=== PATIENT | female | born 1935 | race Caucasian/White ===

== ENCOUNTER 2017-03-15 10:51 | Emergency (ER) | payer OTHER ==
[2017-03-15 11:24] VITALS: BP 146/63; PULSE 64; TEMP 98.1; BMI 24.0
--- NOTE | 2017-03-15 11:43 | PDOC ---
History of Present Illness - General Chief Complaint: Respiratory Stated Complaint: COUGHING Time Seen by Provider: 03/15/17 11:42 History Source: Patient - History of Present Illness Initial Comments: CHIEF COMPLAINT: 82 y/o afebrile female with PMH HTN, HLD, osteoporosis c/o cough and body aches x 1 week. HISTORY OF PRESENT ILLNESS: The patient states she has a little green phlegm with her cough but it is mostly dry. She cannot sleep because of the cough. She states her whole body hurts and has a runny nose. She denies fever, chills , [place], earache, sore throat, n/v/d, SOB, abd pain, back pain, hematuria, dysuria. Her doctor prescribed her a ventolin inhaler which she started yesterday but states it hasn't helped yet. PCP is Dr. Weinstein Vital signs on arrival are within normal limits. REVIEW OF SYSTEMS: GENERAL/CONSTITUTIONAL: No fever/chills. No weakness. No weight change. +body aches. HEAD, EYES, EARS, NOSE AND THROAT: No change in vision. No ear pain or discharge. No sore throat. CARDIOVASCULAR: +chest pain with cough. No shortness of breath. RESPIRATORY: +mostly dry cough; sometimes with green phlegm. No wheezing or hemoptysis. GASTROINTESTINAL: No abd pain, nausea, vomiting, diarrhea. GENITOURINARY: No dysuria, frequency, or change in urination. MUSCULOSKELETAL: No joint or muscle swelling or pain. No neck or back pain. SKIN: No rash or easy bruising. NEUROLOGIC: No headache, vertigo, loss of consciousness, or loss of sensation. PHYSICAL EXAM: GENERAL: The patient is awake, alert, and fully oriented, in no acute distress. She has a very intermittent dry cough. Non toxic appearing. HEAD: Normal with no signs of trauma. No pain reproduced with palpation of frontal or maxillary sinuses. ENT: Pupils equal, round and reactive to light, extraocular movements intact, sclera anicteric, conjunctiva clear. No tonsilar erythema, edema or exudate. LUNGS: Clear to auscultation bilaterally. Normal excursion. No respiratory distress or use of accessory muscles. CV: RRR, S1/S2, no MRG. Cap refill < 2 sec. CHEST WALL: Reproducible pain with palpatio of anterior chest along sternum as well as along b/l lower ribs at mid axillary lines. ABDOMEN: Soft, non-distended, non-tender even to deep palpation, no hepatomegaly or splenomegaly, no masses. EXTREMITIES: Normal range of motion, no edema. NEUROLOGICAL: Normal speech, normal gait. CN II-XII grossly intact. PSYCH: Normal mood, normal affect. SKIN: Warm, dry, normal turgor, no rashes or lesions noted. Past History - Past Medical History Allergies/Adverse Reactions: Allergies Allergy/AdvReac Type Severity Reaction Status Date / Time No Known Allergies Allergy Verified 03/15/17 11:19 Home Medications: Ambulatory Orders Albuterol Sulfate Inhaler - [Ventolin HFA Inhaler -] 1 - 2 inh IH QID #1 inhaler 05/13/14 Albuterol 0.083% Nebulizer Rosalinda [Ventolin 0.083% Nebulizer Soln -] 1 neb NEB Q6H #20 vial 03/15/17 Amlodipine Besylate 5 mg PO DAILY 03/15/17 Azithromycin [Zithromax -] 250 mg PO UTDICT #6 tab 03/15/17 Guaifenesin AC [Robitussin AC -] 5 ml PO TID #50 liquid MDD 15mL 03/15/17 Nebulizer [Aeroeclipse II] 1 each MC PRN #1 each 03/15/17 Valsartan 160 mg PO DAILY 03/15/17 Anemia: No Asthma: No Cancer: No Cardiac Disorders: No CVA: No COPD: No CHF: No Dementia: No Diabetes: No GI Disorders: No Disorders: No HTN: Yes Hypercholesterolemia: No Liver Disease: No Seizures: No Thyroid Disease: No - Surgical History Abdominal Surgery: No Appendectomy: Yes Cardiac Surgery: No Cholecystectomy: No Neurologic Surgery: No Orthopedic Surgery: No - Suicide/Smoking/Psychosocial Hx Smoking Status: No Smoking History: Never smoked Have you smoked in the past 12 months: No Number of Cigarettes Smoked Daily: 0 Hx Alcohol Use: No Drug/Substance Use Hx: No Substance Use Type: None Hx Substance Use Treatment: No *Physical Exam - Vital Signs Last Vital Signs Temp Pulse Resp BP Pulse Ox 98.1 F 64 19 146/63 98 03/15/17 11:19 03/15/17 11:19 03/15/17 11:19 03/15/17 11:19 03/15/17 11:19 ED Treatment Course - LABORATORY CBC & Chemistry Diagram: 03/15/17 12:47 03/15/17 12:47 Medical Decision Making - Medical Decision Making A/P: 82 y/o afebrile female with symptoms of flu vs pneumonia. Plan is as follows: 1. Labs 2. CXR 3. Duoneb 4. Influenza swab Influenza A&B - negative CXR IMPRESSION: No acute pathology After 2 neb treatments and Robitussin with codeine she states she feels better and her cough has lessened. She is asking for both the nebulizer and the cough medicine for home. Will discharge with dx of bronchitis with and rx for z-pack, nebulizer, cough medicine and albuterol for home. Informed her that cough medicine may make her drowsy. Her adult daughter is at bedside and is aware of the potential side effect. Suggested she f/u with her doctor next week and return to the ER with any worsening or concerning symptoms. The patient verbalizes understanding of all instructions, has no further questions and is awaiting discharge. *DC/Admit/Observation/Transfer Diagnosis at time of Disposition: Bronchitis - Discharge Dispostion Disposition: HOME Condition at time of disposition: Improved - Referrals - Patient Instructions Printed Discharge Instructions: DI for Acute Bronchitis Additional Instructions: Discharge instructions: -You have bronchitis -Take medications as prescribed -Gargle with warm salt water to help with throat soreness -The cough medicine may make you feel drowsy. -Follow up with your doctor within 1 week -Return to the ER with any worsening or concerning symptoms Instrucciones de descarga: -Tienes bronquitis -[place] los medicamentos segn lo prescrito -Gargar con agua salada tibia para ayudar con el dolor de garganta -La medicina para la tos puede hacerlo sentir somnoliento. -Siga con [facility] doctor dentro de 1 semana -Volver a la debby de urgencias con cualquier empeoramiento o sntomas Print Language: WOLOF - Post Discharge Activity
[2017-03-15] MEDS: ALBUTEROL SO4 2.5/IPRATROPIUM 0.5 INH SOL 3 ML VIAL.NEB. NEB SCH ×2 (12:45→13:02)
[2017-03-15] MEDS ORDERED: ALBUTEROL SO4 2.5/IPRATROPIUM 0.5 INH SOL 3 ML VIAL.NEB. NEB ONE (12:57)
[2017-03-15] MEDS ORDERED: guaiFENesin/CODEINE 10 ML UNIT-DOSE CUPS PO ONE (12:58)
[2017-03-15 13:04] LABS: BASO % 0.6 % (0-2.0); EOS % 1.5 % (0-4.5); HEMATOCRIT 35.2 % (32.4-45.2); HEMOGLOBIN 11.5 GM/dL (10.7-15.3); MCH 30.3 pg (25.7-33.7); MCHC 32.5 g/dl (32.0-36.0); MEAN CELL VOLUME 93.1 fl (80-96); MEAN PLT VOLUME 9.4 fl (7.5-11.1); MONO % 17.5 % (3.8-10.2); NEUT % 48.4 % (42.8-82.8); PLATELET COUNT 200 K/MM3 (134-434); RBC 3.79 M/mm3 (3.60-5.2); RDW 13.5 % (11.6-15.6); WHITE BLOOD COUNT 5.1 K/mm3 (4.0-10.0)
[2017-03-15] MEDS ORDERED: guaiFENesin/CODEINE 5 ML UNIT-DOSE CUPS PO ONE (13:04)
[2017-03-15 13:41] LABS: ALBUMIN 3.4 g/dl (3.4-5.0); ANION GAP 6 (8-16); BILIRUBIN,TOTAL 0.3 mg/dL (0.2-1.0); BLOOD UREA NITROGEN 11 mg/dL (7-18); CALCIUM 8.4 mg/dL (8.5-10.1); CHLORIDE 101 mmol/L (98-107); CO2 28 mmol/L (21-32); CREATININE 0.7 mg/dL (0.55-1.02); GLUCOSE,RANDOM 82 mg/dL (74-106); POTASSIUM 4.4 mmol/L (3.5-5.1); SGOT/AST 17 U/L (15-37); SGPT/ALT 19 U/L (12-78); SODIUM 135 mmol/L (136-145)
[2017-03-15 13:44] LABS: ALK PHOS 61 U/L (45-117)
== END 2017-03-15 14:27 | disposition home or self-care (01) ==
LOC: JER 10:51
DX: J40 Bronchitis, not specified as acute or chronic (principal); I10 Essential (primary) hypertension; E78.00 Pure hypercholesterolemia, unspecified; M81.0 Age-related osteoporosis without current pathological fracture
CPT/HCPCS: 36415; 71046-TC; 80053; 82550; 84484; 85025; 87804; 99284-25

== ENCOUNTER 2018-09-04 09:07 | Emergency (ER) | payer OTHER ==
[2018-09-04 09:16] VITALS: TEMP 97.9; BMI 24.3
[2018-09-04] MEDS ORDERED: ACETAMINOPHEN 1000 MG/100 ML VIAL (NON FORMULARY) IVPB ONE (09:42)
[2018-09-04] MEDS ORDERED: SODIUM CHLORIDE FOR INHALATION 3 ML VIAL.NEB IH ONE (09:58)
--- NOTE | 2018-09-04 09:59 | PDOC ---
Documentation entered by Jhoan Hoffman SCRIBE, acting as scribe for Alejandro Apple MD. Alejandro Apple MD: This documentation has been prepared by the Dalton choe Elijah, SCRIBE, under my direction and personally reviewed by me in its entirety. I confirm that the documentation accurately reflects all work, treatment, procedures, and medical decision making performed by me. History of Present Illness - General Chief Complaint: Respiratory Stated Complaint: PRODUCTIVE COUGH / LWR BACK PAIN Time Seen by Provider: 09/04/18 09:27 History Source: Patient Exam Limitations: No Limitations - History of Present Illness Initial Comments: 09/04/18 09:45 Patient is an 83 year old female with a significant past medical history of HTN , HLD, and osteoporosis who presents to the ED with a month of productive cough and lower back pain for x3 days. As per patients family member at bedside, the patient has had a productive cough productive of white sputum for over a month. The patient saw her PCP, was given antibiotics (pt cannot recall which one), but has had persistent symptoms despite finishing the course. The patient also reports three days of back pain that is made worse with the cough, deep breaths and has made it difficult to move. Denies any weakness/numbness in her legs. No incontinence or saddle anesthesia. No new leg swelling. Denies fevers, chills, chest pain, SOB, nausea, or vomiting. Allergies: NKA PCP: Dr. Weinstein Past History - Past Medical History Allergies/Adverse Reactions: Allergies Allergy/AdvReac Type Severity Reaction Status Date / Time No Known Allergies Allergy Verified 09/04/18 09:14 Home Medications: Ambulatory Orders Albuterol Sulfate Inhaler - [Ventolin HFA Inhaler -] 1 - 2 inh IH QID #1 inhaler 05/13/14 Albuterol 0.083% Nebulizer Rosalinda [Ventolin 0.083% Nebulizer Soln -] 1 neb NEB Q6H #20 vial 03/15/17 Amlodipine Besylate 5 mg PO DAILY 03/15/17 Nebulizer [Aeroeclipse II] 1 each PRN #1 each 03/15/17 Valsartan 160 mg PO DAILY 03/15/17 Lidocaine 5% Patch [Lidoderm Patch -] 1 patch TP DAILY #7 patch 09/04/18 Naproxen 500 mg PO DAILY PRN #14 tablet 09/04/18 Anemia: No Asthma: No Cancer: No Cardiac Disorders: No CVA: No COPD: No CHF: No Dementia: No Diabetes: No GI Disorders: No Disorders: No HTN: Yes Hypercholesterolemia: No Liver Disease: No Seizures: No Thyroid Disease: No - Surgical History Abdominal Surgery: No Appendectomy: Yes Cardiac Surgery: No Cholecystectomy: No Neurologic Surgery: No Orthopedic Surgery: No - Suicide/Smoking/Psychosocial Hx Smoking Status: No Smoking History: Unknown if ever smoked Have you smoked in the past 12 months: No Number of Cigarettes Smoked Daily: 0 Hx Alcohol Use: No Drug/Substance Use Hx: No Substance Use Type: None Hx Substance Use Treatment: No Review of Systems - Review of Systems Comments:: 09/04/18 09:46 GENERAL/CONSTITUTIONAL: No fever or chills. No weakness. HEAD, EYES, EARS, NOSE AND THROAT: No change in vision. No ear pain or discharge. CARDIOVASCULAR: No chest pain, no loss of consciousness RESPIRATORY: + Productive cough. No wheezing, or hemoptysis. GASTROINTESTINAL: No nausea, vomiting, diarrhea or constipation. GENITOURINARY: No dysuria, frequency, or change in urination. MUSCULOSKELETAL:+Lower Back Pain. No neck pain. SKIN: No rash NEUROLOGIC: No vertigo, no change in strength/sensation. ENDOCRINE: No increased thirst. No abnormal weight change. HEMATOLOGIC/LYMPHATIC: No anemia, easy bleeding, or history of blood clots. ALLERGIC/IMMUNOLOGIC: No hives or skin allergy. *Physical Exam - Vital Signs Last Vital Signs Temp Pulse Resp BP Pulse Ox 97.9 F 66 22 H 149/60 99 09/04/18 09:14 09/04/18 09:14 09/04/18 09:14 09/04/18 09:14 09/04/18 09:14 - Physical Exam Comments: 09/04/18 09:47 GENERAL: Awake, alert, and fully oriented, in no acute distress. HEAD: No signs of trauma EYES: PERRLA, EOMI, sclera anicteric, conjunctiva clear ENT: Auricles normal inspection, hearing grossly normal, nares patent, oropharynx clear without exudates. Moist mucosa NECK: Nontender, no stepoffs, Normal ROM, supple, no lymphadenopathy, JVD, or masses LUNGS: Breath sounds equal, clear to auscultation bilaterally. No wheezes, and no crackles HEART: Regular rate and rhythm, normal S1 and S2, no murmurs, rubs or gallops ABDOMEN: Soft, nontender, normoactive bowel sounds. No guarding, no rebound. No masses EXTREMITIES: Normal range of motion, no edema. No clubbing or cyanosis. No cords, erythema, or tenderness NEUROLOGICAL: Cranial nerves II through XII intact. 5/5 strength and sensation in all extremities, Normal speech, normal gait, normal cerebellar function SKIN: Warm, Dry, normal turgor, no rashes or lesions noted. BACK: + lumbar TTP ED Treatment Course - LABORATORY CBC & Chemistry Diagram: 09/04/18 09:44 09/04/18 09:44 - RADIOLOGY Radiology Studies Ordered: Category Date Time Status CHEST X-RAY PORTABLE* [RAD] Stat Radiology 09/04/18 09:47 Ordered Medical Decision Making - Medical Decision Making 09/04/18 09:55 83 F with cough x 1 month and lower back pain x 3 days. Pt with clear lungs but will r/o PNA. Suspect post-viral bronchitis. Pt's lower back pain is concerning for possible compression fx due to cough. However, given pleuritic nature, will r/o PE with d-dimer. No neuro deficits to suggest cord compression/cauda equina. No abdominal pain, pulsatile masses, or unequal pulses to suggest AAA/ aortic dissection. - Labs, d-dimer - CXR - Saline neb - Tylenol 09/04/18 16:31 [address]A negative for PE CT L spine shows compression fx with no cord injury Pt reassessed - pain is well controlled with tylenol. Pt is well appearing, with normal vitals. Clinically stable for DC at this time. I discussed the physical exam findings, ancillary test results and final diagnoses with the patient. I answered all of the patient's questions. The patient was satisfied with the care received and felt comfortable with the discharge plan and treatment plan. The patient agrees to follow up with the primary care physician within 24-72 hours. *DC/Admit/Observation/Transfer Diagnosis at time of Disposition: Cough, Compression fracture - Discharge Dispostion Disposition: HOME - Referrals Referrals: Ashely Dunbar MD [Primary Care Provider] - Sotero Donahue MD [Staff Physician] - - Patient Instructions Printed Discharge Instructions: DI for Chronic Bronchitis, Vertebral Compression Fracture Additional Instructions: You have a small compression fracture in your spine. Please follow up with an orthopedic surgeon for further management. Take the medications as prescribed for pain. Do not use more than directed. If you experience worsening pain, weakness or numbness in your legs, or any other worrisome symptoms, return to the ER immediately. Tiene shoshana pequea fractura por compresin en la columna vertebral. Por favor, jerman un seguimiento con un cirujano ortopdico para shoshana mayor administracin. [place] los medicamentos segn lo prescrito para el dolor. No usar ms de lo indicado. Si experimenta un empeoramiento del dolor, debilidad o entumecimiento en las piernas, o cualquier otro sntoma preocupante, regrese a la debby de emergencias inmediatamente. Print Language: YORUBA - Post Discharge Activity - Attestations Physician Attestion: 09/04/18 16:37 I, Dr. Alejandro Apple MD, attest that this document has been prepared under my direction and personally reviewed by me in its entirety. I further attest, that it accurately reflects all work, treatment, procedures and medical decision -making performed by me.
[2018-09-04] MEDS ORDERED: ACETAMINOPHEN INJECTION 100 ML IVPB ONE (10:01)
[2018-09-04 10:13] LABS: BASO % 0.7 % (0-2.0); EOS % 0.7 % (0-4.5); HEMATOCRIT 32.9 % (32.4-45.2); HEMOGLOBIN 11.4 GM/dL (10.7-15.3); MCH 31.7 pg (25.7-33.7); MCHC 34.6 g/dl (32.0-36.0); MEAN CELL VOLUME 91.8 fl (80-96); MEAN PLT VOLUME 8.5 fl (7.5-11.1); MONO % 14.8 % (3.8-10.2); NEUT % 48.8 % (42.8-82.8); PLATELET COUNT 206 K/MM3 (134-434); RBC 3.58 M/mm3 (3.60-5.2); RDW 13.9 % (11.6-15.6); WHITE BLOOD COUNT 4.9 K/mm3 (4.0-10.0)
[2018-09-04 10:43] LABS: ALBUMIN 3.7 g/dl (3.4-5.0); ALK PHOS 64 U/L (45-117); ANION GAP 6 MMOL/L (8-16); BILIRUBIN,TOTAL 0.4 mg/dL (0.2-1); BLOOD UREA NITROGEN 13.3 mg/dL (7-18); CALCIUM 9.1 mg/dL (8.5-10.1); CHLORIDE 98 mmol/L (98-107); CO2 27 mmol/L (21-32); CREATININE 0.9 mg/dL (0.55-1.3); GLUCOSE,RANDOM 97 mg/dL (74-106); SGOT/AST 15 U/L (15-37); SGPT/ALT 17 U/L (13-61); SODIUM 130 mmol/L (136-145); TOT PROT 7.2 g/dl (6.4-8.2)
[2018-09-04 12:06] LABS: PH,URINE 7.5 (5.0-8.0); URINE APPEARANCE CLEAR; URINE BILIRUBIN NEGATIVE (NEGATIVE); URINE COLOR YELLOW; URINE GLUCOSE (UA) NEGATIVE (NEGATIVE); URINE KETONE NEGATIVE (NEGATIVE); URINE LEUK ESTERASE NEGATIVE (NEGATIVE); URINE NITRITE NEGATIVE (NEGATIVE); URINE PROTEIN NEGATIVE (NEGATIVE); URINE UROBILINOGEN 0.2 mg/dL (0.2-1.0)
[2018-09-04 12:14] LABS: INR 1.02 (0.83-1.09)
--- NOTE | 2018-09-04 14:50 | EKG ---
Test Reason : Blood Pressure : / mmHG Vent. Rate : 063 BPM Atrial Rate : 063 BPM P-R Int : 190 ms QRS Dur : 084 ms QT Int : 418 ms P-R-T Axes : 025 045 071 degrees QTc Int : 427 ms NORMAL SINUS RHYTHM NORMAL ECG WHEN COMPARED WITH ECG OF 13-MAY-2014 15:52, NO SIGNIFICANT CHANGE WAS FOUND Confirmed by JULIAN MARTINEZ MD ([id number]) on 09/04/2018 2:50:22 PM Referred By: Confirmed By:JULIAN MARTINEZ MD
[2018-09-04] MEDS ORDERED: KETOROLAC TROMETHAMINE 15 MG/ML VIAL IVPUSH ONE (16:37)
[2018-09-04] MEDS ORDERED: KETOROLAC TROMETHAMINE 15 MG/ML VIAL ONE (16:59)
[2018-09-04 17:18] VITALS: BP 187/83; PULSE 63
== END 2018-09-04 17:10 | disposition home or self-care (01) ==
LOC: JER 09:07
PROC: 3E0337Z Introduction of Electrolytic and Water Balance Substance into Peripheral Vein, Percutaneous Approach (ICD-10-PCS; principal; 2018-09-04)
PROC: 3E033NZ Introduction of Analgesics, Hypnotics, Sedatives into Peripheral Vein, Percutaneous Approach (ICD-10-PCS; 2018-09-04)
PROC: 3E0333Z Introduction of Anti-inflammatory into Peripheral Vein, Percutaneous Approach (ICD-10-PCS; 2018-09-04)
DX: R05 Cough (principal); M48.50XA Collapsed vertebra, not elsewhere classified, site unspecified, initial encounter for fracture; I10 Essential (primary) hypertension
CPT/HCPCS: 36415; 71045-TC-FY; 71275-TC; 72131-TC; 80053; 81003; 82550; 83880; 84484; 85025; 85379; 85610; 85730; 87086; 93005; 93010; 99283-25; J0131

== ENCOUNTER 2018-12-28 09:06 | Emergency (ER) | payer OTHER ==
[2018-12-28 09:25] VITALS: BMI 23.8
--- NOTE | 2018-12-28 09:45 | PDOC ---
History of Present Illness - General Chief Complaint: Respiratory Stated Complaint: COUGH Time Seen by Provider: 12/28/18 09:27 - History of Present Illness Initial Comments: 12/28/18 09:47 Pt is an 83 y/o F with a past medical history of HTN, HLD, Osteoporosis, and bronchitis who presents to our emergency department due to a cough. Pt accompanied by granddaughter at bedside. Pt endorses she has been suffering from a chronic cough for the last 3 weeks. Cough is productive of white colored sputum. Pt endorses having received the flu vaccine. States she takes albuterol nebulizer which has not provided any relief of her symptoms. Granddaughter endorses patient had a fever approximately 3 weeks ago in which she took ibuprofen but did not seek professional medical treatment. Denies shortness of breath or chest pain. Denies any sick contacts as well. NKDA Past surgical history: Appendectomy Social history: Denies any tobacco use, alcohol use, or illicit drug use. PCP: Dr. Weinstein Past History - Past Medical History Allergies/Adverse Reactions: Allergies Allergy/AdvReac Type Severity Reaction Status Date / Time No Known Allergies Allergy Verified 12/28/18 09:17 Home Medications: Ambulatory Orders Albuterol 0.083% Nebulizer Rosalinda [Ventolin 0.083% Nebulizer Soln -] 1 neb NEB Q6H #20 vial 03/15/17 Amlodipine Besylate 5 mg PO DAILY 03/15/17 Cholecalciferol (Vitamin D3) [Vitamin D3] 50,000 unit PO WEEKLY 12/28/18 Guaifenesin [Robitussin] 10 ml PO BID PRN #10 cup 12/28/18 Lisinopril 20 mg PO DAILY 12/28/18 Anemia: No Asthma: No Cancer: No Cardiac Disorders: No CVA: No COPD: No CHF: No Dementia: No Diabetes: No GI Disorders: No Disorders: No HTN: Yes Hypercholesterolemia: No Liver Disease: No Seizures: No Thyroid Disease: No - Surgical History Abdominal Surgery: No Appendectomy: Yes Cardiac Surgery: No Cholecystectomy: No Neurologic Surgery: No Orthopedic Surgery: No - Psycho Social/Smoking Cessation Hx Smoking Status: No Smoking History: Unknown if ever smoked Have you smoked in the past 12 months: No Number of Cigarettes Smoked Daily: 0 Hx Alcohol Use: No Drug/Substance Use Hx: No Substance Use Type: None Hx Substance Use Treatment: No Review of Systems - Review of Systems Able to Perform ROS?: Yes Is the patient limited Tongan proficient: Yes Constitutional: Yes: Fever (fever 3 weeks ago ) Respiratory: No: Shortness of Breath Cardiac (ROS): No: Chest Pain ABD/GI: No: Constipated, Diarrhea Neurological: Yes: Headache. No: Dizziness *Physical Exam - Vital Signs Last Vital Signs Temp Pulse Resp BP Pulse Ox 98.1 F 68 16 138/81 99 12/28/18 09:17 12/28/18 09:17 12/28/18 09:17 12/28/18 09:17 12/28/18 09:17 - Physical Exam General Appearance: Yes: Nourished, Appropriately Dressed HEENT: positive: Normal ENT Inspection, Pharynx Normal Neck: positive: Supple Respiratory/Chest: positive: Lungs Clear, Normal Breath Sounds. negative: Crackles, Wheezing Cardiovascular: positive: Regular Rhythm, S1, S2 Gastrointestinal/Abdominal: positive: Soft. negative: Distended, Guarding Heart Score/ECG Review - ECG Impressions Comment:: 12/28/18 11:11 NSR 60 BPM, nl intervals ED Treatment Course - LABORATORY CBC & Chemistry Diagram: 12/28/18 10:20 12/28/18 10:20 Medical Decision Making - Medical Decision Making 12/28/18 09:52 DDx includes but not limited to asthma exacerbation, viral bronchitis 12/28/18 10:18 CBC w/ diff, CMP, CXR Will administer Tylenol, Robitussin, NS, and Albuterol. 12/28/18 10:43 CXR no acute pathology. No infiltrates appreciated, no increased interstitial markings, Costophrenic angles clean.. 12/28/18 12:21 BMP/CBC grossly WNL. No WBC count. Trop neg. 12/28/18 12:23 Pt ambulated with a steady gait to the bathroom Pt to be discharged home with rx for robitussin. Discharge - Discharge Information Problems reviewed: Yes Clinical Impression/Diagnosis: Cough Condition: Stable Disposition: HOME - Additional Discharge Information Prescriptions: Guaifenesin [Robitussin] 10 ml PO BID PRN #10 cup PRN Reason: Cough - Follow up/Referral Referrals: Ashely Dunbar MD [Staff Physician] - - Patient Discharge Instructions Patient Printed Discharge Instructions: DI for Cough -- Adult Additional Instructions: Please drink plenty of fluids. Please keep yourself well hydrated. Please take the medication as prescribed. You may alternate tylenol and ibuprofen as needed for pain. Please keep your appointment on Sunday with your PMD as scheduled. Your chest xray today did not show pneumonia. - Post Discharge Activity
[2018-12-28] MEDS ORDERED: guaiFENesin/D-METHORPHAN HB 10 ML UNIT-DOSE CUPS PO ONE (09:51)
[2018-12-28] MEDS ORDERED: ALBUTEROL SO4 2.5/IPRATROPIUM 0.5 INH SOL 3 ML VIAL.NEB. NEB ONE ×4 (09:51→11:22)
[2018-12-28] MEDS ORDERED: guaiFENesin 200 MG/10 ML 10 ML UNIT-DOSE CUPS ONE (10:07)
[2018-12-28] MEDS ORDERED: ACETAMINOPHEN 1000 MG/100 ML VIAL (NON FORMULARY) IVPB ONE (10:15)
[2018-12-28] MEDS ORDERED: LACTATED RINGERS SOLUTION 1000 ML INFUS.BAG IV ONE (10:15)
--- NOTE | 2018-12-28 10:31 | PDOC ---
Documentation entered by Vani Taylor SCRIBE, acting as scribe for Katharine Capps DO. Katharine Capps DO: This documentation has been prepared by the Claudia choe Brenda, SCRIBE, under my direction and personally reviewed by me in its entirety. I confirm that the documentation accurately reflects all work, treatment, procedures, and medical decision making performed by me. Attending Attestation - Resident Resident Name: Pardeep Hinojosa - ED Attending Attestation I have performed the following: I have examined & evaluated the patient, The case was reviewed & discussed with the resident, I agree w/resident's findings & plan, Exceptions are as noted - HPI HPI: 12/28/18 10:33 The patient is a year old female, with a significant PMH of Bronchitis, HTN, HLD , and osteoporosis, who presents to the emergency department with 3 weeks of a worsening chronic cough, productive of white colored sputum. Patient also endorses body aches from coughing. Patient states getting the influenza vaccination, and notes she has been taking her albuterol nebulizer, to no avail. As per granddaughter on the bedside, the patient had a fever a couple of weeks, for which she took ibuprofen for. The patient denies chest pain, shortness of breath, headache and dizziness. Denies nausea, vomiting, diarrhea and constipation. Denies any urinary symptoms. Allergies: NKA Past surgical history: Appendectomy Social history: Denies any tobacco use, alcohol use, or illicit drug use. PCP: Dr. Weinstein - Physicial Exam PE: 12/28/18 10:16 Gen: aaox3, coughing - nonproductive, bronchospastic heent: MMM, Posterior pharynx clear lungs: cta b/l heart: +s1s2 reg abd: soft, nt/nd +bs ext: no c/c/e - Medical Decision Making 12/28/18 10:16 I, Dr. Katharine Capps DO, attest that this document has been prepared under my direction and personally reviewed by me in its entirety. I further attest, that it accurately reflects all work, treatment, procedures and medical decision -making performed by me. a/p: 83yo female with cough productive white sputum x 3 weeks -states fevers 3 weeks ago when the cough started -hx of chronic cough -follows with Dr. Garcia (took over for Js), last seem for flu shot in October -no n/v/d -tolerating po at home -not sleeping because of the cough -using inhaler x 2 per day without relief -pt arrives with dry cough today - lungs cta -will give nebs, ivf hydration, tylenol -pt appears weak, but is nontoxic in appearance -suspect viral bronchitis with residual cough - will dose robitussin -will monitor and reassess 12/28/18 10:32 cxr clear 12/28/18 11:17 no elevated wbc trop neg bnp neg 12/28/18 11:29 no acute findings on labs 12/28/18 11:47 pt ambulated with a steady gait to the bathroom 12/28/18 11:58 discussed lab and imaging results pt without the cough during the conversation will rx robitussin to pharmacy for cough control stable for dc to home and follow up on Sunday with PMD as scheduled Discharge - Discharge Information Problems reviewed: Yes Clinical Impression/Diagnosis: Cough Condition: Stable Disposition: HOME - Admission No - Additional Discharge Information Prescriptions: Guaifenesin [Robitussin] 10 ml PO BID PRN #10 cup PRN Reason: Cough - Follow up/Referral Referrals: Ashely Dunbar MD [Staff Physician] - - Patient Discharge Instructions Patient Printed Discharge Instructions: DI for Cough -- Adult Additional Instructions: Please drink plenty of fluids. Please keep yourself well hydrated. Please take the medication as prescribed. You may alternate tylenol and ibuprofen as needed for pain. Please keep your appointment on Sunday with your PMD as scheduled. Your chest xray today did not show pneumonia. - Post Discharge Activity Heart Score/ECG Review - ECG Intrepretation Comment:: 12/28/18 10:29 sinus at 60, nl axis, nl interval, no acute st/t wave findings
[2018-12-28] MEDS ORDERED: ACETAMINOPHEN INJECTION 100 ML IVPB ONE (10:32)
[2018-12-28 10:45] LABS: BASO % 1.1 % (0-2.0); EOS % 0.7 % (0-4.5); HEMATOCRIT 35.2 % (32.4-45.2); HEMOGLOBIN 11.8 GM/dL (10.7-15.3); LYMPH % 30.8 % (8-40); MCH 31.7 pg (25.7-33.7); MCHC 33.5 g/dl (32.0-36.0); MEAN CELL VOLUME 94.4 fl (80-96); MEAN PLT VOLUME 8.5 fl (7.5-11.1); MONO % 13.5 % (3.8-10.2); NEUT % 53.9 % (42.8-82.8); PLATELET COUNT 218 K/MM3 (134-434); RBC 3.73 M/mm3 (3.60-5.2); RDW 13.4 % (11.6-15.6); WHITE BLOOD COUNT 4.3 K/mm3 (4.0-10.0)
[2018-12-28 11:06] LABS: BILIRUBIN,TOTAL 0.6 mg/dL (0.2-1); BLOOD UREA NITROGEN 13.6 mg/dL (7-18); CALCIUM 9.2 mg/dL (8.5-10.1); CREATININE 0.8 mg/dL (0.55-1.3); N-TERMINAL BNP 139.9 pg/ml (5-450); POTASSIUM 4.2 mmol/L (3.5-5.1); TOT PROT 7.9 g/dl (6.4-8.2)
[2018-12-28 12:16] VITALS: BP 148/60; PULSE 73; TEMP 97.6
--- NOTE | 2018-12-30 10:50 | EKG ---
Test Reason : Blood Pressure : / mmHG Vent. Rate : 060 BPM Atrial Rate : 060 BPM P-R Int : 186 ms QRS Dur : 068 ms QT Int : 432 ms P-R-T Axes : 054 033 061 degrees QTc Int : 432 ms NORMAL SINUS RHYTHM NORMAL ECG WHEN COMPARED WITH ECG OF 04-SEP-2018 09:47, NO SIGNIFICANT CHANGE WAS FOUND Confirmed by ZHENG SOLANO MD ([id number]) on 12/30/2018 10:50:24 AM Referred By: Confirmed By:ZHENG SOLANO MD
== END 2018-12-28 12:20 | disposition home or self-care (01) ==
LOC: JER 09:06
PROC: 3E033NZ Introduction of Analgesics, Hypnotics, Sedatives into Peripheral Vein, Percutaneous Approach (ICD-10-PCS; principal; 2018-12-28)
PROC: 3E0F7GC Introduction of Other Therapeutic Substance into Respiratory Tract, Via Natural or Artificial Opening (ICD-10-PCS; 2018-12-28)
PROC: 3E0F7GC Introduction of Other Therapeutic Substance into Respiratory Tract, Via Natural or Artificial Opening (ICD-10-PCS; 2018-12-28)
DX: R05 Cough (principal); I10 Essential (primary) hypertension; E78.5 Hyperlipidemia, unspecified; Z87.09 Personal history of other diseases of the respiratory system; M81.8 Other osteoporosis without current pathological fracture
CPT/HCPCS: 36415; 71045-TC-FY; 80053; 83880; 84484; 85025; 93005; 93010; 94640; 96374; 99284-25; J0131